=== PATIENT | female | born 1995 | race Caucasian/White ===

== ENCOUNTER 2018-02-26 07:00 | Emergency (ER) | payer OTHER ==
[~2018-02-26] VITALS: Ht 170.2 cm; Wt 124.7 kg
[~2018-02-26 07:00] MED LIST: ALBU90OI INH; AMIT50 PO; Ativan0.5 MG PO; CIPR500 PO; CITA20 PO; CODACEE120 PO; CRUTCH USE; DEPO; DESO.05TCA TOP; FAMO20 PO; FAMO40 PO; GABA100 PO; HEADACHE MED; IBUP600 PO; IBUP800; Keflex500 MG PO; LORATADINE; Macrodantin100 MG PO; Norco 5-325 Ta1 EACH PO; OXYACE5T PO; PERM5TC TOP; PROCODE120 PO; PROM25 PO; PROP10 PO; RANI150 PO; RXCODACESY PO; RXHYD5325 PO; RXTRAM50 PO; SERT100 PO; TRAM50 PO; Ultram50 MG PO; Verotin-Gr Cap1 EACH; Verotin-Gr Cap1 EACH PO
[2018-02-26] MEDS ORDERED: Flomax0.4 MG PO (09:06)
[2018-02-26] MEDS ORDERED: Zofran Odt4 MG SL (09:06)
[2018-02-26] MEDS ORDERED: Norco 5-325 Ta1 EACH PO (09:06)
== END 2018-02-26 09:30 | disposition home or self-care (01) ==
LOC: ER 07:00
DX: N13.2 Hydronephrosis with renal and ureteral calculous obstruction (principal); Z88.8 Allergy status to other drugs, medicaments and biological substances; Z87.891 Personal history of nicotine dependence
CPT/HCPCS: 74176; 81000; 81025; 96372; 99284-25; J1885

== ENCOUNTER 2020-03-02 10:38 | Day surgery (SDC) | payer OTHER ==
[~2020-03-02] VITALS: Ht 170.2 cm; Wt 140.8 kg
[~2020-03-02 10:38] MED LIST changes: +AMIT75; +Flomax0.4 MG PO; +NEBI5; +RIZATRIPTAN5 M1; +TIZANIDINE HCL2 M1; +Zofran Odt4 MG SL
--- NOTE | 2020-03-02 13:08 | NUR ---
03/02/20 1308 Yoana Lee PT. VERBALIZES HAVING A SORE THROAT, DR. MAYO AWARE.
--- NOTE | 2020-03-02 13:54 | NUR ---
03/02/20 1354 Wayne,Gracie PERCOCET 1 TAB GIVEN FOR CO PAIN IN ABD. 10/14
== END 2020-03-02 14:09 | disposition home or self-care (01) ==
LOC: ORSCSDS 10:38
PROVIDERS: Obstetrics & Gynecology
PROC: 0UB74ZZ Excision of Bilateral Fallopian Tubes, Percutaneous Endoscopic Approach (ICD-10-PCS; principal; 2020-03-02 12:00)
DX: Z30.2 Encounter for sterilization (principal); F41.8 Other specified anxiety disorders; F17.210 Nicotine dependence, cigarettes, uncomplicated; Z79.899 Other long term (current) drug therapy
CPT/HCPCS: 88302; J0171; J0330; J1100; J1885; J2250; J2405; J2704; J3010; J7120

== ENCOUNTER → 2022-04-13 | Outpatient (CLI) | payer OTHER ==
[2022-04-14 11:43] LABS: C DIFFICILE DNA NEGATIVE (Negative)
== END | disposition home or self-care (01) ==
LOC: LAB SHORT 13:33 → LAB 13:33
PROVIDERS: Physician Assistant
DX: R15.2 Fecal urgency (principal)
CPT/HCPCS: 87015; 87045; 87046; 87177; 87205; 87209; 87338; 87493; 87899

== ENCOUNTER 2023-06-05 19:56 | Emergency (ER) | payer OTHER ==
[~2023-06-05] VITALS: Ht 170.2 cm; Wt 145.2 kg
[2023-06-05 20:02] VITALS: BP 198/95
== END 2023-06-05 21:19 | disposition home or self-care (01) ==
LOC: ER 19:56
DX: S91.312A Laceration without foreign body, left foot, initial encounter (principal); W26.0XXA Contact with knife, initial encounter; Z88.8 Allergy status to other drugs, medicaments and biological substances; Z79.899 Other long term (current) drug therapy; K21.9 Gastro-esophageal reflux disease without esophagitis; Z87.891 Personal history of nicotine dependence
CPT/HCPCS: 12001; 90471; 90714; 99282-25

== ENCOUNTER → 2023-06-19 | Outpatient (CLI) | payer OTHER | LOC: LAB 16:07 → LAB SHORT 16:07 | DX: R35.0 Frequency of micturition (principal) | CPT/HCPCS: 87086 ==

== ENCOUNTER → 2023-07-01 | Outpatient (CLI) | payer OTHER | END | disposition home or self-care (01) | LOC: LAB SHORT 11:04 → LAB 11:04 | DX: R35.0 Frequency of micturition (principal) | CPT/HCPCS: 87086 ==

== ENCOUNTER → 2023-12-12 | Outpatient (CLI) | payer OTHER | LOC: LAB 08:16 → LAB SHORT 08:16 | DX: N93.9 Abnormal uterine and vaginal bleeding, unspecified (principal) | CPT/HCPCS: 88305 ==

== ENCOUNTER → 2024-04-26 | Outpatient (CLI) | payer OTHER | LOC: LAB 19:17 → LAB SHORT 19:17 | DX: R42 Dizziness and giddiness (principal) | CPT/HCPCS: 87086 ==

== ENCOUNTER 2024-07-12 03:15 | Emergency (ER) | payer BC, OTHER ==
[~2024-07-12] VITALS: Ht 170.2 cm; Wt 140.6 kg
[2024-07-12] MEDS ORDERED: BUSP5 PO (03:43)
[2024-07-12] MEDS ORDERED: Adipex-P37.5 M1 PO (03:44)
[2024-07-12] MEDS ORDERED: PREG50 PO (03:44)
[2024-07-12] MEDS ORDERED: DESV50 PO (03:44)
[2024-07-12] MEDS ORDERED: OMEP20ER PO (03:44)
[2024-07-12 03:57] LABS: Source, Urine Clean Catch
[2024-07-12] MEDS ORDERED: Ketorolac Tromethamine 15mg Vial IV ONE (04:00)
[2024-07-12] MEDS ORDERED: Ondansetron HCl 2 MG / ML 2ML Vial IV ONE (04:00)
[2024-07-12] MEDS ORDERED: Lactated Ringer's 1,000 ML IV ONE (04:00)
[2024-07-12 04:03] LABS: Bilirubin, Urine Neg (Neg); Blood, Urine 5+ (Neg); Glucose Qualitative, Urine Neg (Neg); Ketones, Urine Neg (Neg); Leukocyte Esterase, Urine 1+ (Neg); Nitrite, Urine Neg (Neg); Protein, Urine 2+ (Neg); Urobilinogen, Urine NORM (Normal)
[2024-07-12 04:13] LABS: Appearance, Urine Hazy (Clear); Color, Urine Yellow (P-Yellow)
[2024-07-12 04:14] LABS: Amorphous Light (0-Heavy); Bacteria Few /hpf; Calcium Oxalate Crystals Few /hpf; Mucus Mod (0-Heavy); Red Blood Cells, Urine TNTC /hpf (0-2); Squamous Epithelial Cells Few /hpf (Few); White Blood Cells, Urine 0-2 /hpf (0-5)
[2024-07-12 04:23] LABS: BASOPHILS ABSOLUTE AUTO 0.05 K/mm3 (0.00-0.23); BASOPHILS PERCENT AUTO 1 % (0-2); EOSINOPHILS ABSOLUTE AUTO 0.18 K/mm3 (0.00-0.68); EOSINOPHILS PERCENT AUTO 2 % (0-6); Hematocrit 37.4 % (33.0-51.0); Hemoglobin 12.9 g/dL (11.5-16.0); IMMATURE GRAN ABSOLUTE AUTO 0.01 K/mm3 (0.00-0.10); IMMATURE GRAN PERCENT AUTO 0 % (0-1); LYMPHOCYTES ABSOLUTE AUTO 1.91 K/mm3 (0.84-5.20); LYMPHOCYTES PERCENT AUTO 24 % (21-46); MONOCYTES ABSOLUTE AUTO 0.57 K/mm3 (0.16-1.47); MONOCYTES PERCENT AUTO 7 % (4-13); Mean Corpuscular HGB 30.2 pg (26.0-34.0); Mean Corpuscular HGB Conc 34.5 g/dL (31.5-36.5); Mean Corpuscular Volume 88 fL (80-100); Mean Platelet Volume 10.3 fL (9.1-12.4); NEUTROPHILS ABSOLUTE AUTO 5.31 K/mm3 (1.96-9.15); NEUTROPHILS PERCENT AUTO 66 % (41-73); Platelet Count 271 K/mm3 (150-400); RDW Coefficient Variation 12.4 % (11.7-14.2); RDW Standard Deviation 39.8 fL (35.1-46.3); Red Blood Cell Count 4.27 M/mm3 (3.80-5.20); White Blood Cell Count 8.03 K/mm3 (4.00-11.30)
[2024-07-12 05:28] LABS: Albumin, Blood 3.6 g/dL (3.4-5.0); Bilirubin, Total 0.4 mg/dL (0.1-1.0); Bun/Creatinine Ratio 13.9 (12.0-20.0); Calcium, Blood 9.1 mg/dL (8.5-10.1); Creatinine, Blood 1.08 mg/dL (0.40-1.00); Globulin, Blood 3.5 g/dL (2.2-4.0); Potassium, Blood 3.5 mmol/L (3.5-5.5); Total Protein, Blood 7.1 g/dL (6.4-8.2)
[2024-07-12 05:30] VITALS: BP 126/79
[2024-07-12] MEDS ORDERED: ONDA4ODT MM (05:48)
[2024-07-12] MEDS ORDERED: RX Prepack 2 Tabs Ondansetron ODT 4MG UD ONE (05:50)
[2024-07-12] MEDS ORDERED: RX Prepack 6 Tabs Oxycodone 5mg UD ONE (05:50)
== END 2024-07-12 05:58 | disposition home or self-care (01) ==
LOC: ER 03:15
PROVIDERS: Student in an Organized Health Care Education/Training Program
DX: R10.9 Unspecified abdominal pain (principal); R31.9 Hematuria, unspecified; K21.9 Gastro-esophageal reflux disease without esophagitis; E66.01 Morbid (severe) obesity due to excess calories; F17.210 Nicotine dependence, cigarettes, uncomplicated; Z91.09 Other allergy status, other than to drugs and biological substances; Z79.899 Other long term (current) drug therapy
CPT/HCPCS: 80053; 81001; 81025; 85025; 96361; 96374; 96375; 99283-25; A9270; J1885; J2405; J7120

== ENCOUNTER → 2024-07-20 | Outpatient (CLI) | payer BC, OTHER ==
[~2024-07-20] MED LIST changes: +Adipex-P37.5 M1 PO; +BUSP5 PO; +DESV50 PO; +OMEP20ER PO; +ONDA4ODT MM; +PREG50 PO
== END | disposition home or self-care (01) ==
LOC: LAB 18:11 → LAB SHORT 18:11
DX: R35.0 Frequency of micturition (principal)
CPT/HCPCS: 87086

== ENCOUNTER → 2024-08-23 | Outpatient (CLI) | payer BC, OTHER | LOC: LAB 16:28 → LAB SHORT 16:28 | DX: R30.0 Dysuria (principal) | CPT/HCPCS: 87077; 87086; 87186 ==